=== PATIENT | male | born 1975 | race Asian ===

== ENCOUNTER 2016-11-29 18:00 | Inpatient (IN) | payer OTHER ==
[2016-11-29 18:10] VITALS: BMI 25.0
--- NOTE | 2016-11-29 18:12 | PDOC ---
History of Present Illness - History of Present Illness Initial Comments: 11/29/16 19:02 The patient is a 41 year old male, with a significant past medical history of hypertension and hyperlipidemia, who presents to the emergency department with a progressive abscess to his right anterior thigh for 5 days. The patient states 5 days ago, on Thursday, he noticed a pimple-like bump. He reports noticing increased redness to the surrounding bump the next day, which he reports treating with topical Neosporin. He reports increased pain to the area on , as well as, ulceration. The patient states on Thursday he woke up and the thigh was red and angry. He states he called his PCP who prescribed him Keflex, however, the patient states he was concerned this morning when the center of the abscess became black and necrotic looking. He also states he feels lousy and generally weak. He also reports a fever today of 100F. He denies chest pain, shortness of breath, headache and dizziness. He denies chills, nausea, vomit, diarrhea and constipation. He denies dysuria, frequency, urgency and hematuria. 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 Denies toxic habits PCP - Dr. Tanner Armando <Valerie Ronquillo - Last Filed: 11/29/16 19:02> <Manfred Hart - Last Filed: 11/30/16 12:10> - General Chief Complaint: Abscess Boil Stated Complaint: RT LEG ABSCESS Time Seen by Provider: 11/29/16 18:12 Past History <Valerie Ronquillo - Last Filed: 11/29/16 19:02> - Past Medical History HTN: Yes Hypercholesterolemia: Yes - Suicide/Smoking/Psychosocial Hx Smoking History: Never smoked Have you smoked in the past 12 months: No Hx Alcohol Use: No <Manfred Hart - Last Filed: 11/30/16 12:10> - Past Medical History Allergies/Adverse Reactions: Allergies Allergy/AdvReac Type Severity Reaction Status Date / Time No Known Allergies Allergy Verified 11/29/16 18:04 Home Medications: Ambulatory Orders Atorvastatin Ca [Lipitor] 10 mg PO HS 11/29/16 Cephalexin [Keflex] 500 mg PO Q8H 11/29/16 Fenofibrate mg PO DAILY 11/29/16 Nebivolol HCl [Bystolic] 5 mg PO DAILY 11/29/16 Review of Systems - Review of Systems Able to Perform ROS?: Yes Comments:: 11/29/16 19:02 GENERAL/CONSTITUTIONAL: +fever or chills. + weakness. HEAD, EYES, EARS, NOSE AND THROAT: No change in vision. No ear pain or discharge. No sore throat. GASTROINTESTINAL: No nausea, vomiting, diarrhea or constipation. GENITOURINARY: No dysuria, frequency, or change in urination. CARDIOVASCULAR: No chest pain or shortness of breath. RESPIRATORY: No cough, wheezing, or hemoptysis. MUSCULOSKELETAL: No joint or muscle swelling or pain. No neck or back pain. SKIN: +skin boil NEUROLOGIC: No headache, vertigo, loss of consciousness, or change in strength/ sensation. ENDOCRINE: No increased thirst. No abnormal weight change. HEMATOLOGIC/LYMPHATIC: No anemia, easy bleeding, or history of blood clots. ALLERGIC/IMMUNOLOGIC: No hives or skin allergy. <Valerie Ronquillo - Last Filed: 11/29/16 19:02> *Physical Exam - Vital Signs Last Vital Signs Temp Pulse Resp BP Pulse Ox 100.8 F H 110 H 20 146/98 98 11/29/16 18:00 11/29/16 18:00 11/29/16 18:00 11/29/16 18:00 11/29/16 18:00 - Physical Exam Comments: 11/29/16 19:02 GENERAL: Awake, alert, and fully oriented, in no acute distress HEAD: No signs of trauma EYES: PERRLA, EOMI, sclera anicteric, conjunctiva clear ENT: Auricles normal inspection, hearing grossly normal, nares patent, oropharynx clear without exudates. Moist mucosa NECK: Normal ROM, supple, no lymphadenopathy, JVD, or masses LUNGS: Breath sounds equal, clear to auscultation bilaterally. No wheezes, and no crackles HEART: Tachycardic to 106 but regular, normal S1 and S2, no murmurs, rubs or gallops ABDOMEN: Soft, nontender, normoactive bowel sounds. No guarding, no rebound. No masses EXTREMITIES: Normal range of motion, no edema. No clubbing or cyanosis. No cords, erythema, or tenderness BACK: No midline spinal tenderness in cervical/thoracic/lumbar region NEUROLOGICAL: Normal speech, cranial nerves intact, negative pronator drift, 5/ 5 strength in all 4 extremities, normal sensation to light touch in all 4 extremities, normal cerebellar exam, normal gait, normal reflexes and tone SKIN: (+) right anterior thigh abscess with black necrotic ulcerated region with large surrounding area of erythema streaking into distal and proximal thigh. +warmth and malodorous. No active discharge from abscess. Warm, Dry, normal turgor, no rashes <Valerie Ronquillo - Last Filed: 11/29/16 19:02> - Vital Signs Last Vital Signs Temp Pulse Resp BP Pulse Ox 100.8 F H 110 H 20 146/98 98 11/29/16 18:00 11/29/16 18:00 11/29/16 18:00 11/29/16 18:00 11/29/16 18:00 <Manfred Hart - Last Filed: 11/30/16 12:10> ED Treatment Course - LABORATORY CBC & Chemistry Diagram: 11/30/16 06:00 11/30/16 06:00 <Manfred Hart - Last Filed: 11/30/16 12:10> Medical Decision Making - Medical Decision Making 11/29/16 18:58 41-year-old male with a history of hypertension and hyperlipidemia presents with right thigh abscess that failed outpatient treatment with Keflex. He was sent in by Dr. Moran for IV abx, debridement, and admission. Patient also reporting generalized weakness, fever. He is febrile here and tachycardic. 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 Plan: -labs -blood cx -Vanc -tylenol IV for pain and fever -Dr. Moran on his way in for debridement 11/29/16 19:15 Pt signed out to Dr. Curran for further eval and management <Manfred Hart - Last Filed: 11/30/16 12:10> *DC/Admit/Observation/Transfer - Attestations Scribe Attestion: 11/29/16 19:02 Documentation prepared by Valerie Ronquillo, acting as medical manager for Manfred Hart MD, <Valerie Ronquillo - Last Filed: 11/29/16 19:02> <Manfred Hart - Last Filed: 11/30/16 12:10> Diagnosis at time of Disposition: Cellulitis and abscess of leg - Discharge Dispostion Condition at time of disposition: Stable
[2016-11-29] MEDS ORDERED: VANCOMYCIN 1,250 MG in DEXTROSE 5%-WATER - 250 ML IVPB ONE (18:32)
[2016-11-29] MEDS ORDERED: SODIUM CHLORIDE 0.9% 500 ML INFUS.BAG IV ONE ×2 (18:32→19:01)
[2016-11-29] MEDS ORDERED: ACETAMINOPHEN INJECTION 100 ML IVPB ONE (18:50)
[2016-11-29] MEDS ORDERED: ACETAMINOPHEN 1000 MG/100 ML VIAL (NON FORMULARY) IVPB ONE (18:51)
[2016-11-29] MEDS ORDERED: HYDROmorphone HCL CARPU-JECT 1 MG/1 ML DISP.SYRIN ONE (19:06)
[2016-11-29] MEDS ORDERED: VANCOMYCIN 1,000 MG VIAL (RESTRICTED TO ID ONLY) ONE (19:18)
[2016-11-29 19:23] LABS: BASOPHIL 0.6 % (0-2.0); EOSINOPHIL 0.9 % (0-4.5); MCH 29.3 pg (25.7-33.7); MCHC 33.1 g/dl (32.0-35.9); MEAN CELL VOLUME 88.5 fl (80-96); MEAN PLT VOLUME 8.2 fl (7.5-11.1); NEUTROPHILS 85.8 % (42.8-82.8); PLATELET COUNT 278 K/MM3 (134-434); RDW 12.9 % (11.9-15.9); WHITE BLOOD COUNT 16.5 K/mm3 (4.0-10.8)
[2016-11-29 19:30] LABS: ALBUMIN 4.7 g/dl (3.5-5.0); ALK PHOS 86 U/L (32-92); ANION GAP 0 (8-16); BILIRUBIN,TOTAL 0.4 mg/dl (0.2-1.0); CALCIUM 9.4 mg/dl (8.4-10.2); CO2 30 mmol/L (22-28); CREATININE 1.1 mg/dl (0.6-1.3); GLUCOSE,RANDOM 108 mg/dl (74-106); MAGNESIUM 1.9 mg/dL (1.8-2.4); SGOT/AST 30 U/L (10-42); SGPT/ALT 30 U/L (10-40); TOT PROT 7.9 g/dl (6.4-8.3)
[2016-11-29] MEDS ORDERED: HYDROmorphone HCL CARPU-JECT 1 MG/1 ML DISP.SYRIN IVPUSH ONE (19:32)
[2016-11-29] MEDS ORDERED: VANCOMYCIN 500 MG VIAL (RESTRICTED TO ID ONLY) ONE (19:37)
--- NOTE | 2016-11-29 19:50 | PDOC ---
*Physical Exam - Vital Signs Last Vital Signs Temp Pulse Resp BP Pulse Ox 100.8 F H 110 H 20 146/98 98 11/29/16 18:00 11/29/16 18:00 11/29/16 18:00 11/29/16 18:00 11/29/16 18:00 ED Treatment Course - LABORATORY CBC & Chemistry Diagram: 11/29/16 18:50 11/29/16 18:50 - ADDITIONAL ORDERS Additional order review: Laboratory Results 11/29/16 18:50 Sodium 132 L Potassium 3.8 Chloride 102 Carbon Dioxide 30 H Anion Gap 0 L BUN 16 Creatinine 1.1 Creat Clearance w eGFR > 60 Random Glucose 108 H Calcium 9.4 Magnesium 1.9 Total Bilirubin 0.4 AST 30 ALT 30 Alkaline Phosphatase 86 Total Protein 7.9 Albumin 4.7 11/29/16 18:50 RBC 5.15 MCV 88.5 MCHC 33.1 RDW 12.9 MPV 8.2 Neutrophils % 85.8 H Lymphocytes % 6.4 L Monocytes % 6.3 Eosinophils % 0.9 Basophils % 0.6 - Medications Given in the ED: ED Medications Discontinued Medications Generic Name Dose Route Start Last Admin Trade Name Freq PRN Reason Stop Dose Admin Acetaminophen 1,000 mg 11/29/16 18:51 11/29/16 18:30 Ofirmev Injection - IVPB 11/29/16 18:52 1,000 mg ONCE ONE Administration Hydromorphone HCl 1 mg 11/29/16 19:32 11/29/16 19:00 Dilaudid Injection - IVPUSH 11/29/16 19:33 1 mg ONCE ONE Administration Sodium Chloride 1,000 ml 11/29/16 18:32 11/29/16 19:00 Normal Saline - IV 11/29/16 18:33 1,000 ml ONCE ONE Administration Medical Decision Making - Medical Decision Making 11/29/16 21:05 Care of this patient received from Right thigh abscess drained by here in the ER; wound culture sent 12-lead electrocardiogram performed and interpreted by me. This shows normal sinus rhythm at 76 bpm; axis, wave forms and intervals are all normal. No evidence of acute ST or T-wave abnormalities. Portable chest x-ray shows no evidence of acute pulmonary cardiac disease. Case discussed with [facility] hospitalist service. Patient will be admitted to their service (, attending) for IV antibiotics. *DC/Admit/Observation/Transfer Diagnosis at time of Disposition: Cellulitis and abscess of leg - Discharge Dispostion Condition at time of disposition: Stable Admit: Yes
[2016-11-29] MEDS ORDERED: SODIUM CHLORIDE 1,000 ML IV SCH (21:15)
--- NOTE | 2016-11-29 21:30 | HP ---
CHIEF COMPLAINT: abscess to my right thigh PCP: Tr ([facility]) HISTORY OF PRESENT ILLNESS: This is a 41-year-old male patient with past medical history of hypertension and high cholesterol presents today with abscess to the right thigh. States that approximately 3 days ago he noticed what he thought was bug bite on the lateral aspect of his right thigh which he scratched and the lesion started to express pus at that time. He contacted his primary doctor who wrote him a prescription for Keflex. 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 The patient failed outpatient treatment with Keflex as infection is likely MRSA. This morning he noticed the area around the initial lesion became erythematous and firm to palpation with an ulceration at the middle where the original lesion was. When he saw which he describes as "necrotic tissue" he presented to the emergency room for further treatment. 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 [facility] Family History: Allergies No Known Allergies Allergy (Verified 11/29/16 18:04) HOME MEDICATIONS: Home Medications Medication Instructions Recorded Atorvastatin Ca [Lipitor] 10 mg PO HS 11/29/16 Cephalexin [Keflex] 500 mg PO Q8H 11/29/16 Fenofibrate mg PO DAILY 11/29/16 Nebivolol HCl [Bystolic] 5 mg PO DAILY 11/29/16 REVIEW OF SYSTEMS CONSTITUTIONAL: Present- fever, chills Absent: diaphoresis, generalized weakness, malaise, loss of appetite, weight change HEENT: Absent: rhinorrhea, nasal congestion, throat pain, throat swelling, difficulty swallowing, mouth swelling, ear pain, eye pain, visual changes CARDIOVASCULAR: Absent: chest pain, syncope, palpitations, irregular heart rate, lightheadedness , peripheral edema RESPIRATORY: Absent: cough, shortness of breath, dyspnea with exertion, orthopnea, wheezing, stridor, hemoptysis GASTROINTESTINAL: Absent: abdominal pain, abdominal distension, nausea, vomiting, diarrhea, constipation, melena, hematochezia GENITOURINARY: Absent: dysuria, frequency, urgency, hesitancy, hematuria, flank pain, genital pain MUSCULOSKELETAL: Absent: myalgia, arthralgia, joint swelling, back pain, neck pain SKIN: Present- abscess, erythema, warm to touch right lateral thigh Absent: rash, itching, pallor HEMATOLOGIC/IMMUNOLOGIC: Absent: easy bleeding, easy bruising, lymphadenopathy, frequent infections ENDOCRINE: Absent: unexplained weight gain, unexplained weight loss, heat intolerance, cold intolerance NEUROLOGIC: Absent: headache, focal weakness or paresthesias, dizziness, unsteady gait, seizure, mental status changes, bladder or bowel incontinence PSYCHIATRIC: Absent: anxiety, depression, suicidal or homicidal ideation, hallucinations. PHYSICAL EXAMINATION Vital Signs - 24 hr 11/29/16 20:50 Temperature 98.8 F Pulse Rate [ 88 Left Apical] Respiratory 16 Rate Blood Pressure 130/89 [Right Arm] O2 Sat by Pulse 99 Oximetry (%) GENERAL: Awake, alert, and fully oriented, in no acute distress. HEAD: Normal with no signs of trauma. EYES: Pupils equal, round and reactive to light, extraocular movements intact, sclera anicteric, conjunctiva clear. No lid lag. EARS, NOSE, THROAT: Ears normal, nares patent, oropharynx clear without exudates. Moist mucous membranes. NECK: Normal range of motion, supple without lymphadenopathy, JVD, or masses. LUNGS: Breath sounds equal, clear to auscultation bilaterally. No wheezes, and no crackles. No accessory muscle use. HEART: Regular rate and rhythm, normal S1 and S2 without murmur, rub or gallop. ABDOMEN: Soft, nontender, not distended, normoactive bowel sounds, no guarding, no rebound, no masses. No hepatomegaly or splenomegaly. MUSCULOSKELETAL: Normal range of motion at all joints. No bony deformities or tenderness. No CVA tenderness. UPPER EXTREMITIES: 2+ pulses, warm, well-perfused. No cyanosis. No clubbing. No peripheral edema. LOWER EXTREMITIES: 2+ pulses, warm, well-perfused. No calf tenderness. No peripheral edema. 8 cm circular area of erythema surrounding I&D site to the right lateral thigh. Purulent drainage from I&D site. Packing in place. Small < 0.25cm lesion noted to left medial thigh. NEUROLOGICAL: Cranial nerves II-XII intact. Normal speech. Normal gait. PSYCHIATRIC: Cooperative. Good eye contact. Appropriate mood and affect. SKIN: Warm, dry, normal turgor, no rashes or lesions noted, normal capillary refill. ASSESSMENT/PLAN: A: 41-year-old male status post I&D of abscess to right lateral thigh. P: 1. Abscess s/p I&D - vancomycin 1250mg IV bid - ID consult for Abx approval - dressing changes daily - wound and blood cx pending - trend fever curve 2. HTN - well controlled - Bystolic 3. HLD - fenofibrate ?150mg- would adjust when dose is confirmed - Lipitor 4. F/E/N - NS@100cc/hr - Low Na diet - replete prn 5. PPX -oob Dispo- requires inpatient treatment for his acute medical conditions Problem List - Problem (1) Cellulitis and abscess of leg Code(s): L03.119 - CELLULITIS OF UNSPECIFIED PART OF LIMB L02.419 - CUTANEOUS ABSCESS OF LIMB, UNSPECIFIED (2) HTN (hypertension) Code(s): I10 - ESSENTIAL (PRIMARY) HYPERTENSION (3) Hyperlipidemia Code(s): E78.5 - HYPERLIPIDEMIA, UNSPECIFIED Visit type - Emergency Visit Emergency Visit: Yes ED Registration Date: 11/29/16 Care time: The patient presented to the Emergency Department on the above date and was hospitalized for further evaluation of their emergent condition. - New Patient This patient is new to me today: Yes Date on this admission: 11/29/16 - Critical Care Critical Care patient: No
[2016-11-29] MEDS: ATORVASTATIN CA 10 MG TABLET (FP) PO SCH (21:55)
[2016-11-30] MEDS ORDERED: VANCOMYCIN 1,250 MG in DEXTROSE 5%-WATER - 250 ML IVPB ONE (06:30)
--- NOTE | 2016-11-30 07:18 | PN ---
Progress Note, Physician Chief Complaint: ID Consult dictated Fever chills on admission - Current Medication List Current Medications: Active Medications Acetaminophen (Tylenol -) 1,000 mg PO Q6H PRN PRN Reason: FEVER OR PAIN Atorvastatin Calcium (Lipitor -) 10 mg PO HS [facility] Last Admin: 11/29/16 21:55 Dose: 10 mg Fenofibric Acid (Trilipix -) 135 mg PO DAILY [facility] Sodium Chloride (Normal Saline -) 1,000 mls @ 100 mls/hr IV ASDIR [facility] Last Admin: 11/29/16 21:55 Dose: 100 mls/hr Vancomycin HCl 1,250 mg/ (Dextrose) 250 mls @ 250 mls/hr IVPB ONCE ONE PRN Reason: Protocol Stop: 11/30/16 07:29 Last Admin: 11/30/16 06:48 Dose: 250 mls/hr Nebivolol (Bystolic -) 5 mg PO DAILY [facility] - Objective Vital Signs: Vital Signs Temperature 98.2 F 11/30/16 05:14 Pulse Rate 76 11/30/16 05:14 Respiratory Rate 18 11/30/16 05:14 Blood Pressure 130/85 11/30/16 05:14 O2 Sat by Pulse Oximetry (%) 99 11/29/16 22:00 Extremities: Yes: Other (Necrotic debrided wound ant thigh surrounding erythema) Problem List - Problems (1) Cellulitis and abscess of leg Code(s): L03.119 - CELLULITIS OF UNSPECIFIED PART OF LIMB L02.419 - CUTANEOUS ABSCESS OF LIMB, UNSPECIFIED Assessment/Plan Microbiology Laboratory Tests 11/29/16 11/29/16 18:50 18:50 WBC 16.5 H Hgb 15.1 Plt Count 278 BUN 16 Creatinine 1.1 Creat Clearance w eGFR > 60 Assessment SSTI infection anterior thigh 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
[2016-11-30] MEDS: ACETAMINOPHEN 500 MG TABLET (FP) PO PRN (07:50)
--- NOTE | 2016-11-30 08:54 | PN ---
Physical Exam: SUBJECTIVE: Patient seen and examined, reports feeling well reports an improvement of pain the right lower extremity A she denies any tactile fever. OBJECTIVE:patient is a 41-year-old male with a past medical history of hypertension hyperlipidemia. Patient was admitted to the emergency department for abscess and cellulitis to the right lower extremity after failing outpatient Vital Signs Period Temp Pulse Resp BP Sys/Fall Pulse Ox Last 24 Hr 98.2 F-98.8 F 72-88 16-18 120-130/68-89 99-99 GENERAL: The patient is awake, alert, and fully oriented, in no acute distress. HEAD: Normal with no signs of trauma. EYES: PERRL, extraocular movements intact, sclera anicteric, conjunctiva clear. No ptosis. ENT: Ears normal, nares patent, oropharynx clear without exudates, moist mucous membranes. NECK: Trachea midline, full range of motion, supple. LUNGS: Breath sounds equal, clear to auscultation bilaterally, no wheezes, no crackles, no accessory muscle use. HEART: Regular rate and rhythm, S1, S2 without murmur, rub or gallop. ABDOMEN: Soft, nontender, nondistended, normoactive bowel sounds, no guarding, no rebound, no hepatosplenomegaly, no masses. EXTREMITIES: 2+ pulses, warm, well-perfused, no edema. RIGHT LOWER EXTREMITY: 2 cm incision with packing with 1 cm surrounding induration with 5 cm of surrounding erythema and no lymphangitis noted LEFT LOWER EXTREMITY: 1 cm pustule to the medial thigh, no surrounding erythema and minimal induration noted NEUROLOGICAL: Cranial nerves II through XII grossly intact. Normal speech, gait not observed. PSYCH: Normal mood, normal affect. SKIN: Warm, dry, normal turgor, no rashes or lesions noted Active Medications Generic Name Dose Route Start Last Admin Trade Name Freq PRN Reason Stop Dose Admin Acetaminophen 1,000 mg 11/29/16 21:18 11/30/16 07:50 Tylenol - PO 1,000 mg Q6H PRN Administration FEVER OR PAIN Atorvastatin Calcium 10 mg 11/29/16 22:00 11/29/16 21:55 Lipitor - PO 10 mg HS JANET Administration Fenofibric Acid 135 mg 11/30/16 10:00 Trilipix - PO DAILY JANET Sodium Chloride 1,000 mls @ 100 mls/hr 11/29/16 21:15 11/29/16 21:55 Normal Saline - IV 100 mls/hr ASDIR JANET Administration Vancomycin HCl 1,250 mg/ 250 mls @ 250 mls/hr 11/30/16 22:00 Dextrose IVPB BID [facility] Protocol Piperacillin Sod/Tazobactam Sod 100 mls @ 200 mls/hr 11/30/16 10:00 Zosyn 4.5gm Ivpb (Pre-Docked) IVPB Q8H-IV JANET Protocol Nebivolol 5 mg 11/30/16 10:00 Bystolic - PO DAILY [facility] Microbiology 11/29/16 19:15 Thigh - Right Gram Stain - Final ASSESSMENT/PLAN: 1. Abscess s/p I&D - incision and drainage, 11/29/[address] Moran, case discussed with Dr Pulido at bedside, packing changed. 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 - leukocytosis improving, trending downward, monitor fever curve and WBC - pending blood and wound culture - infectious disease consulted and following Dr. Woodard 2. HTN - b/p at goal continue bystolic 3. HLD - continue fenofibrate and lipitor lft's wnl 4. F/E/N - Low Na diet - replete prn 5. PPX -oob Dispo- requires inpatient treatment for his acute medical conditions Visit type - Emergency Visit Emergency Visit: Yes ED Registration Date: 11/29/16 Care time: The patient presented to the Emergency Department on the above date and was hospitalized for further evaluation of their emergent condition. - New Patient This patient is new to me today: Yes Date on this admission: 11/30/16 - Critical Care Critical Care patient: No - Discharge Referral Referred to [facility] No
[2016-11-30 09:15] LABS: BASOPHIL 0.4 % (0-2.0); EOSINOPHIL 2.5 % (0-4.5); MCH 29.5 pg (25.7-33.7); MEAN CELL VOLUME 89.6 fl (80-96); MEAN PLT VOLUME 8.5 fl (7.5-11.1); NEUTROPHILS 80.7 % (42.8-82.8); PLATELET COUNT 213 K/MM3 (134-434); RDW 12.9 % (11.9-15.9); WHITE BLOOD COUNT 11.8 K/mm3 (4.0-10.8)
[2016-11-30] MEDS: FENOFIBRIC ACID 135 MG CAP PO SCH (09:39)
[2016-11-30] MEDS: PIPERACILLIN/TAZOB 4.5 GM 100 ML IVPB SCH ×2 (09:39→18:00)
[2016-11-30] MEDS: NEBIVOLOL 5 MG TABLET (FP) PO SCH (09:39)
[2016-11-30 09:58] LABS: ANION GAP 5 (8-16); CALCIUM 8.2 mg/dl (8.4-10.2); CO2 24 mmol/L (22-28); CREATININE 0.9 mg/dl (0.6-1.3); GLUCOSE,RANDOM 112 mg/dl (74-106)
--- NOTE | 2016-11-30 11:40 | EKG ---
Test Reason : Blood Pressure : / mmHG Vent. Rate : 076 BPM Atrial Rate : 076 BPM P-R Int : 130 ms QRS Dur : 094 ms QT Int : 378 ms P-R-T Axes : -03 031 015 degrees QTc Int : 425 ms NORMAL SINUS RHYTHM NORMAL ECG NO PREVIOUS ECGS AVAILABLE Confirmed by JAVID PÉREZ MD ([id number]) on 11/30/2016 11:39:58 AM Referred By: CARL FRENCH Confirmed By:JAVID PÉREZ MD
[2016-11-30 12:40] LABS: HIV 1 & 2 AB NEGATIVE; HIV 1 AGp24 NEGATIVE
[2016-11-30] MEDS: LACTOBACILLUS ACIDOPHILUS 1 EACH TAB (FP) PO SCH (14:00)
[2016-11-30] MEDS ORDERED: PT OWN MED DRAWER 7, Y5N ONE (20:47)
[2016-11-30] MEDS ORDERED: REFRIGERATED ANITBIOTICS ONE (20:49)
[2016-11-30] MEDS: ATORVASTATIN CA 10 MG TABLET (FP) PO SCH (21:37)
[2016-11-30] MEDS: VANCOMYCIN 1,250 MG in DEXTROSE 5%-WATER - 250 ML IVPB SCH (21:37)
[2016-12-01] MEDS: PIPERACILLIN/TAZOB 4.5 GM 100 ML IVPB SCH ×3 (01:23→17:20)
[2016-12-01 08:59] LABS: BASOPHIL 0.5 % (0-2.0); EOSINOPHIL 4.3 % (0-4.5); MCH 30.5 pg (25.7-33.7); MCHC 33.5 g/dl (32.0-35.9); MEAN PLT VOLUME 8.2 fl (7.5-11.1); NEUTROPHILS 69.8 % (42.8-82.8); PLATELET COUNT 234 K/MM3 (134-434); RDW 12.7 % (11.9-15.9); WHITE BLOOD COUNT 7.1 K/mm3 (4.0-10.8)
--- NOTE | 2016-12-01 09:14 | PN ---
Physical Exam: SUBJECTIVE: Patient seen and examined OBJECTIVE: Vital Signs Period Temp Pulse Resp BP Sys/Fall Pulse Ox Last 24 Hr 98.1 F-98.2 F 55-66 18-18 102-127/57-78 10-100 GENERAL: The patient is awake, alert, and fully oriented, in no acute distress. HEAD: Normal with no signs of trauma. LUNGS: Breath sounds equal, clear to auscultation bilaterally, no wheezes, no crackles, no accessory muscle use. HEART: Regular rate and rhythm, S1, S2 without murmur, rub or gallop. ABDOMEN: Soft, nontender, nondistended, normoactive bowel sounds, no guarding, no rebound RIGHT LOWER EXTREMITY: Wound visualized, base is beefy red, edges are necrotic, tunneling at 2:00, scant exudate, serosanguinous drainage on dressing NEUROLOGICAL: Cranial nerves II through XII grossly intact. Normal speech, steady gait Laboratory Results - last 24 hr 11/30/16 11/30/16 11/30/16 06:00 06:00 06:00 WBC 11.8 H RBC 3.90 L D Hgb 11.5 L D Hct 35.0 L D MCV 89.6 MCH 29.5 MCHC 33.0 RDW 12.9 Plt Count 213 D MPV 8.5 Neutrophils % 80.7 Lymphocytes % 10.2 D Monocytes % 6.2 Eosinophils % 2.5 D Basophils % 0.4 Sodium 134 L Potassium 4.0 Chloride 105 Carbon Dioxide 24 Anion Gap 5 L BUN 11 D Creatinine 0.9 Random Glucose 112 H Calcium 8.2 L C-Reactive Protein 2.7 H HIV 1&2 Antibody Screen HIV P24 Antigen 11/30/16 12/01/16 06:00 07:35 WBC 7.1 D RBC 3.95 L Hgb 12.0 Hct 36.0 MCV 91.0 MCH 30.5 MCHC 33.5 RDW 12.7 Plt Count 234 MPV 8.2 Neutrophils % 69.8 Lymphocytes % 19.2 D Monocytes % 6.2 Eosinophils % 4.3 Basophils % 0.5 Sodium Potassium Chloride Carbon Dioxide Anion Gap BUN Creatinine Random Glucose Calcium C-Reactive Protein HIV 1&2 Antibody Screen Negative HIV P24 Antigen Negative Active Medications Generic Name Dose Route Start Last Admin Trade Name Freq PRN Reason Stop Dose Admin Acetaminophen 1,000 mg 11/29/16 21:18 11/30/16 07:50 Tylenol - PO 1,000 mg Q6H PRN Administration FEVER OR PAIN Atorvastatin Calcium 10 mg 11/29/16 22:00 11/30/16 21:37 Lipitor - PO 10 mg HS JANET Administration Fenofibric Acid 135 mg 11/30/16 10:00 11/30/16 09:39 Trilipix - PO 135 mg DAILY JANET Administration Vancomycin HCl 1,250 mg/ 250 mls @ 250 mls/hr 11/30/16 22:00 11/30/16 21:37 Dextrose IVPB 250 mls/hr BID JANET Administration Protocol Piperacillin Sod/Tazobactam Sod 100 mls @ 200 mls/hr 11/30/16 10:00 12/01/16 01 :23 Zosyn 4.5gm Ivpb (Pre-Docked) IVPB 200 mls/hr Q8H-IV JANET Administration Protocol Lactobacillus Acidophilus 1 tab 11/30/16 13:45 11/30/16 14:00 Bacid - PO 1 tab DAILY JANET Administration Nebivolol 5 mg 11/30/16 10:00 11/30/16 09:39 Bystolic - PO 5 mg DAILY JANET Administration Oxycodone/Acetaminophen 1 combo 11/30/16 14:25 Percocet 5/325 - PO Q4H PRN PAIN ASSESSMENT/PLAN 41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 RLE abscess s/p I&D --incision and drainage 11/29/[address] Moran; packing changed today, wet to dry dressing --continue vancomycin and Zosyn; wound culture pending --afebrile, leukocytosis has resolved; patient reports less pain at site --ID following Transaminitis --AST and ALT elevated, likely secondary to Zosyn --continue to trend Hypertension --BP well-controlled --continue Bystolic Hyperlipidemia --continue Lipitor, fenofibric acid F/E/N Fluids: PO intake adequate Electrolytes: replete as indicated Nutrition: low sodium diet DVT prophylaxis: ambulatory Dispo: continues to require inpatient care. Full code. Visit type - Emergency Visit Emergency Visit: Yes ED Registration Date: 11/29/16 Care time: The patient presented to the Emergency Department on the above date and was hospitalized for further evaluation of their emergent condition. - New Patient This patient is new to me today: Yes Date on this admission: 12/01/16 - Critical Care Critical Care patient: No
[2016-12-01 09:21] LABS: ALBUMIN 3.3 g/dl (3.5-5.0); ALK PHOS 87 U/L (32-92); ANION GAP 7 (8-16); BILIRUBIN,TOTAL 0.4 mg/dl (0.2-1.0); CO2 25 mmol/L (22-28); CREATININE 1.1 mg/dl (0.6-1.3); GLUCOSE,RANDOM 117 mg/dl (74-106); PHOSPHOROUS 3.8 mg/dl (2.5-4.6); SGOT/AST 114 U/L (10-42); SGPT/ALT 113 U/L (10-40); TOT PROT 6.1 g/dl (6.4-8.3)
[2016-12-01] MEDS: FENOFIBRIC ACID 135 MG CAP PO SCH (09:25)
[2016-12-01] MEDS: VANCOMYCIN 1,250 MG in DEXTROSE 5%-WATER - 250 ML IVPB SCH (09:31)
[2016-12-01] MEDS: NEBIVOLOL 5 MG TABLET (FP) PO SCH (09:32)
[2016-12-01] MEDS: LACTOBACILLUS ACIDOPHILUS 1 EACH TAB (FP) PO SCH (09:32)
[2016-12-01] MEDS: ACETAMINOPHEN 500 MG TABLET (FP) PO PRN (11:31)
[2016-12-01 14:08] VITALS: BP 122/77; PULSE 66; TEMP 98.4
--- NOTE | 2016-12-01 15:11 | DS ---
Physical Exam: Patient seen and examined today. See progress note dated today, 12/01/16. Laboratory Results - last 24 hr 12/01/16 12/01/16 12/01/16 07:35 07:35 07:35 WBC 7.1 D RBC 3.95 L Hgb 12.0 Hct 36.0 MCV 91.0 MCH 30.5 MCHC 33.5 RDW 12.7 Plt Count 234 MPV 8.2 Neutrophils % 69.8 Lymphocytes % 19.2 D Monocytes % 6.2 Eosinophils % 4.3 Basophils % 0.5 Sodium 139 Potassium 4.2 Chloride 107 Carbon Dioxide 25 Anion Gap 7 L BUN 10 Creatinine 1.1 D Creat Clearance w eGFR > 60 Random Glucose 117 H Calcium 9.0 Phosphorus 3.8 Magnesium 2.0 Total Bilirubin 0.4 AST 114 H D ALT 113 H D Alkaline Phosphatase 87 Total Protein 6.1 L D Albumin 3.3 L D Vancomycin Pre-Dose 8.225 HOSPITAL COURSE: Date of Admission:11/29/16 Date of Discharge: 12/01/16 41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 RLE abscess s/p I&D --incision and drainage 11/29/[address] Moran; packing changed today, wet to dry dressing --culture growing presumptive MSSA; d/c vanc and Zosyn; discharged on augmentin for another 10 days of treatment --will follow up with surgeon Dr. Ratliff Transaminitis --AST and ALT elevated, likely secondary to Zosyn --should get repeat blood work in a week to make sure levels have returned to wnl Hypertension --BP well-controlled --continued Bystolic Hyperlipidemia --continued Lipitor, fenofibric acid Minutes to complete discharge: 35 Discharge Summary Reason For Visit: CELLULITIS Current Active Problems Cellulitis and abscess of leg (Acute) HTN (hypertension) (Acute) Hyperlipidemia (Acute) Condition: Improved - Instructions Diet, Activity, Other Instructions: The culture from your wound has grown presumptive MSSA. A prescription has been sent to your pharmacy for augmentin BID x 10 days. If you would like, you can follow up with Dr. Woodard, the ID doctor who saw you in the hospital. His contact information is enclosed. You may also want to follow up with Dr. Ratliff, the surgeon who performed the I &D. His contact information is also enclosed. Please follow the wound care instructions given to you by Dr. Ratliff. As we discussed, your transaminase levels bumped out today likely as a result of the Zosyn you were on. Suggest you get repeat bloodwork in about a week to make sure your levels have returned to normal. Return to the emergency room for any new or worsening symptoms. Referrals: Denny Jimenez [Staff Physician] - 1 Week Ángel Woodard MD [Staff Physician] - Disposition: HOME - Home Medications Comprehensive Discharge Medication List: Ambulatory Orders Atorvastatin Ca [Lipitor] 10 mg PO HS 11/29/16 Fenofibrate mg PO DAILY 11/29/16 Nebivolol HCl [Bystolic] 5 mg PO DAILY 11/29/16 Amoxicillin/Potassium Clav [Augmentin 875-125 Tablet] 1 each PO BID #20 tablet 12/01/16 This patient is new to me today: Yes Date on this admission: 12/01/16 Emergency Visit: Yes ED Registration Date: 11/29/16 Care time: The patient presented to the Emergency Department on the above date and was hospitalized for further evaluation of their emergent condition. Critical Care patient: No - Discharge Referral Referred to [facility] No
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
== END 2016-12-01 19:07 | disposition home or self-care (01) | DRG 581 ==
LOC: FER 18:00 → FM/S 20:47
PROVIDERS: ADMIT Internal Medicine; ATTEND Nurse Practitioner Acute Care
PROC: 0J9N0ZZ Drainage of Right Lower Leg Subcutaneous Tissue and Fascia, Open Approach (ICD-10-PCS; principal; 2016-11-29)
DX: L03.115 Cellulitis of right lower limb (principal); I10 Essential (primary) hypertension; E78.5 Hyperlipidemia, unspecified; R74.0 Nonspecific elevation of levels of transaminase and lactic acid dehydrogenase [LDH]; D72.829 Elevated white blood cell count, unspecified
CPT/HCPCS: 36415; 71010-TC; 80048; 80053; 83605; 83735; 84100; 85025; 86140; 87040; 87070; 87186; 87205; 87389; 93005; 99285-25; G0480